=== PATIENT | female | born 1985 | race African-American/Black ===

== ENCOUNTER 2017-01-22 16:23 | Emergency (ER) | payer SELFPAY ==
[~2017-01-22 16:23] MED LIST: BACT800T5 PO; LANTUS2P SC; METF500 PO
[2017-01-22 16:24] VITALS: BP 171/99; PULSE 104; RESP 18; TEMP 98.3; O2SAT 99
--- NOTE | 2017-01-22 16:42 | PD ---
HPI Chief Complaint: Medical Clearance Time Seen by Provider: 16:42 Travel History International Travel<30 days: No Contact w/Intl Traveler<30days: No Traveled to known affect area: No History of Present Illness HPI 31-year-old female presents to the emergency department with multiple complaints. She woke up this morning feeling "shakiness and anxiousness." She is a type 2 insulin-dependent diabetic. Her blood sugar was 98 at home. Her blood sugar here was 130 in triage. She is also complaining of chest tightness and shortness of breath for the past few days. She has history of asthma and last used her inhaler last night with no relief of symptoms. Denies wheezing. Denies recent illness. Says she feels anxious, but denies history of anxiety. Denies chest pain. She is also requesting a urine test. Her last normal menstrual period was December 05. At the beginning of this month she had spotting, which was unusual menses for her. She denies abdominal pain, cramping. Denies nausea. Reports vomiting once last night. Denies fever. She is also complaining of urinary frequency. Denies vaginal odor, discharge, itch, lesions. Denies urinary urgency, hematuria, dysuria. No known allergies. Has no other medical complaints. No other modifying factors or associated signs and symptoms. PFSH Past Medical History Diabetes: Yes ?: Unknown Past Surgical History Tonsillectomy: Yes Social History Alcohol Use: Yes (OCCASSIONAL ) Tobacco Use: No Substance Use: No Allergies-Medications (Allergen,Severity, Reaction): Coded Allergies: No Known Allergies (Unverified , 04/15/16) Reported Meds & Prescriptions Reported Meds & Active Scripts Active No Active Prescriptions or Reported Medications Review of Systems Except as stated in HPI: all other systems reviewed are Neg Physical Exam Narrative GENERAL: Well-nourished, well-developed female patient, in no acute distress; appears anxious; afebrile, nontoxic-appearing SKIN: Warm and dry. HEAD: Atraumatic. Normocephalic. EYES: Pupils equal and round. No scleral icterus. No injection or drainage. ENT: Mucosa pink and moist. Airway patent. NECK: Trachea midline. CARDIOVASCULAR: Regular rate and rhythm. No murmur appreciated.. RESPIRATORY: No accessory muscle use. Breath sounds clear and equal bilaterally. No retractions or tachypnea. GASTROINTESTINAL: Obese. Abdomen soft, non-tender, nondistended. Bowel sounds active 4 quadrants. Nonrigid. No guarding. Bladder is nontender and nondistended. BACK: No CVA tenderness. MUSCULOSKELETAL: No obvious deformities. No clubbing. No cyanosis. No edema. NEUROLOGICAL: Awake and alert. Oriented 3. No obvious cranial nerve deficits. Motor grossly within normal limits. Normal speech. PSYCHIATRIC: Appropriate mood and affect; insight and judgment normal. Data Data Last Documented VS Vital Signs Date Time Temp Pulse Resp B/P Pulse Ox O2 Delivery O2 Flow Rate FiO2 01/22/17 16:24 98.3 104 18 171/99 99 Orders Ed Urine Pregnancytest Poc (01/22/17 16:37) Urinalysis - C+S If Indicated (01/22/17 16:56) Labs Laboratory Tests Test 01/22/17 16:58 Urine Color YELLOW Urine Turbidity HAZY Urine pH 6.0 Urine Specific [place] 1.026 Urine Protein 100 mg/dL Urine Glucose (UA) NEG mg/dL Urine Ketones NEG mg/dL Urine Occult Blood NEG Urine Nitrite NEG Urine Bilirubin NEG Urine Urobilinogen LESS THAN 2.0 MG/DL Urine Leukocyte Esterase NEG Urine RBC LESS THAN 1 /hpf Urine WBC 2 /hpf Urine Squamous Epithelial 6 /hpf Cells Urine Bacteria RARE /hpf Urine Hyaline Casts 1 /lpf Urine Mucus FEW /lpf Microscopic Urinalysis Comment CULT NOT INDICATED MDM Medical Decision Making Medical Screen Exam Complete: Yes Emergency Medical Condition: Yes Medical Record Reviewed: Yes Differential Diagnosis Asthma exacerbation, anxiety, , hypoglycemia Narrative Course 31-year-old female with insulin-dependent type 2 diabetes with multiple complaints. Blood sugar in triage was 130. Patient is also complaining of chest tightness and shortness of breath. She has history of asthma. Lungs are clear and equal throughout. The patient is in no acute distress. No retractions or tachypnea. Oxygen saturation 99% on room air. Patient does appear anxious on physical exam. Urinalysis, urine ordered. 1713: Urine negative. 1716: Urinalysis without signs of infection. 1725: Patient states she feels this way when she "gets a lot of things in her head." Reports history of similar symptoms. I offered the patient a medication for anxiety and she declined. Heart recheck 92 and oxygen saturation 99% on room air. I discussed the patient with Dr. Cuevas, my attending physician and he agrees the patient is stable for out patient followup. Patient verbalizes understanding and agreement with treatment plan. Patient is medically cleared and stable for discharge. Discussed reasons to return to the emergency department. Instructed patient to follow up with primary care provider. Patient agrees with treatment plan. The patients vital signs are stable and the patient is stable for outpatient follow-up and treatment. Patient discharged home, stable and in no acute distress. Diagnosis Primary Impression: Negative test Additional Impression: Anxiousness Referrals: Primary Care Physician Patient Instructions: Anxiety (ED), General Instructions Additional Instructions: Continue albuterol inhaler as prescribed Followup with primary care provider Return to the emergency department with worsening of symptoms Med/Other Pt SpecificInfo: No Change to Meds, No Meds Exist/No RX given Scripts No Active Prescriptions or Reported Meds Disposition: 01 DISCHARGE HOME Condition: Stable Tamiko Dickerson Jan 22, 2017 16:42
[2017-01-22 17:11] LABS: BACTERIA, URINE RARE /hpf; BLOOD, URINE NEG (NEG); COMMENT (UR) CULT NOT INDICATED; CULTURE IF INDICATED CULT NOT INDICATED; GLUCOSE,URINE NEG (NEG); HYALINE CAST, URINE 1 /lpf (RARE); KETONE, URINE NEG (NEG); MUCUS URINE FEW /lpf (OCC); NITRITE,URINE NEG (NEG); SQUAMOUS EPITHELIAL CELL URINE 6 /hpf (0-5); URINE COLOR YELLOW (YELLW/STRAW)
== END 2017-01-22 17:47 | disposition home or self-care (01) ==
LOC: NEPD 16:23
DX: Z32.02 Encounter for pregnancy test, result negative (principal); F41.9 Anxiety disorder, unspecified; R07.89 Other chest pain; R06.02 Shortness of breath; R35.0 Frequency of micturition; R11.10 Vomiting, unspecified; E11.9 Type 2 diabetes mellitus without complications; Z79.4 Long term (current) use of insulin; Z87.09 Personal history of other diseases of the respiratory system
CPT/HCPCS: 81001; 84703; 99283